=== PATIENT | female | born 1955 | race Asian ===

== ENCOUNTER 2021-10-24 23:49 | Inpatient (IN) | payer MEDICARE, OTHER ==
[~2021-10-24] VITALS: Ht 165.1 cm; Wt 83.6 kg
[2021-10-25] MEDS ORDERED: IV NORMAL SALINE 1000 ML BAG IV ONE
[2021-10-25] MEDS ORDERED: AMLO2.5T4 PO (00:58)
[2021-10-25] MEDS ORDERED: LOSA25TA27 PO (00:58)
[2021-10-25 00:59] LABS: HEMATOCRIT 35.9 % (31.2-41.9); MEAN CORPUSCULAR HEMOGLOBIN 28.9 uug (24.7-32.8); MEAN CORPUSCULAR VOLUME 85.1 fL (75.5-95.3); PLATELET COUNT (AUTO) 224 K/uL (179-408)
--- NOTE | 2021-10-25 01:04 | NUR ---
Patient and her unable to recall all home medication abd dosages at this time.
[2021-10-25 01:17] LABS: ALANINE AMINOTRANSFERASE 33 U/L (14-59); ALKALINE PHOSPHATASE 96 U/L (50-136); ASPARTATE AMINOTRANSFERASE 16 U/L (15-37); BILIRUBIN,DIRECT < 0.1 mg/dL (0.0-0.2); BILIRUBIN,TOTAL 0.3 mg/dL (0.2-1.0); CARBON DIOXIDE 27 mmol/L (21-32); CHLORIDE 105 mmol/L (98-107); GLUCOSE 110 mg/dL (74-106); POTASSIUM 3.3 mmol/L (3.5-5.1); TOTAL PROTEIN, SERUM 7.5 g/dL (6.4-8.2); UREA NITROGEN, BLOOD 17 mg/dL (7-18)
[2021-10-25] MEDS ORDERED: POTASSIUM BICARBONATE/CIT AC 25 MEQ TABLET.EFF PO ONE (01:30)
[2021-10-25] MEDS ORDERED: IV NORMAL SALINE 250 ML IV ONE (01:30)
[2021-10-25] MEDS ORDERED: SWABABLE VALVE TRANSFER SET EA MC ONE (01:30)
[2021-10-25] MEDS ORDERED: IOHEXOL 350 100 ML INFUS..BTL ONE (01:30)
--- NOTE | 2021-10-25 01:34 | NUR ---
Patient out of unit for ct scan via wheelchair
[2021-10-25 01:42] LABS: *BILIRUBIN,URIN NEGATIVE (NEGATIVE); *COLOR,URINE YELLOW (YELLOW); *KETONES,URINE NEGATIVE (NEGATIVE); *UROBILINOGEN,URINE 0.2 E.U./dl (NORMAL); LEUKOCYTE ESTERASE ,URINE TRACE (NEGATIVE); NITRITE, URINE NEGATIVE (NEGATIVE); PH,URINE 6.5 (5.0-8.0); UGLUCOSE NEGATIVE (NEGATIVE)
--- NOTE | 2021-10-25 01:45 | NUR ---
Patient back from ct scan with no distress noted.
[2021-10-25 01:58] LABS: *BLOOD, URINE TRACE (NEGATIVE); *CLARITY,URINE HAZY (CLEAR)
[2021-10-25 01:59] LABS: BACTERIA,URINE MODERATE /HPF (NONE SEEN); SQUAMOUS EPITHELIAL CELL,UR MODERATE /HPF (NONE SEEN)
--- NOTE | 2021-10-25 02:39 | NUR ---
Called PSYCHIATRIC to page Hoda Ortiz NP.
--- NOTE | 2021-10-25 02:47 | NUR ---
Dr. Garcia on panel call with Hoda Ortiz NP.
[2021-10-25] MEDS ORDERED: ENOXAPARIN SODIUM 40 MG/0.4 ML DISP.SYRIN SQ SCH (03:00)
[2021-10-25] MEDS ORDERED: ONDANSETRON 4 MG/2 ML VIAL IV PRN (03:00)
[2021-10-25] MEDS ORDERED: Z GUARD REMEDY PASTE 57 GM TUBE TOP PRN (03:00)
[2021-10-25] MEDS ORDERED: IV NS 1000 ML 1,000 ML IV PRN (03:00)
[2021-10-25] MEDS ORDERED: CEFTRIAXONE 1 G in IV DEXTROSE 5% 50 ML IV SCH (03:00)
[2021-10-25] MEDS ORDERED: ACETAMINOPHEN 325 MG TABLET PO PRN (03:00)
[2021-10-25] MEDS ORDERED: DEXTROSE 50% 50 ML DISP.SYRIN IV PRN (03:00)
[2021-10-25] MEDS ORDERED: MAGNESIUM HYDROXIDE 30 ML LIQUID UDC PO PRN (03:00)
[2021-10-25] MEDS ORDERED: INSULIN REGULAR, HUMAN 300 UNIT/3 ML VIAL SQ PRN (03:00)
[2021-10-25] MEDS ORDERED: POTASSIUM BICARBONATE/CIT AC 25 MEQ TABLET.EFF ONE (03:04)
[2021-10-25] MEDS ORDERED: CEFTRIAXONE /D5W 50ML IVPB **ER PYXIS IV ONE (03:29)
[2021-10-25] MEDS ORDERED: PANTOPRAZOLE SODIUM 40 MG TABLET.DR PO SCH (07:00)
[2021-10-25] MEDS: BLOOD SUGAR DIAGNOSTIC 1 EACH STRIP VI SCH ×2 (07:45→11:48)
[2021-10-25] MEDS ORDERED: PANTOPRAZOLE SODIUM 40 MG TABLET.DR PO ONE (07:47)
[2021-10-25 08:54] LABS: HEMATOCRIT 34.1 % (31.2-41.9); MEAN CORPUSCULAR HEMOGLOBIN 28.9 uug (24.7-32.8); MEAN CORPUSCULAR VOLUME 85.6 fL (75.5-95.3); PLATELET COUNT (AUTO) 202 K/uL (179-408)
[2021-10-25 08:58] LABS: CREATININE 0.8 mg/dL (0.6-1.3); POTASSIUM 3.7 mmol/L (3.5-5.1)
[2021-10-25] MEDS ORDERED: METFORMIN HCL 500 MG TABLET PO SCH (09:00)
[2021-10-25 09:04] LABS: BILIRUBIN,TOTAL 0.2 mg/dL (0.2-1.0); MAGNESIUM 2.4 mg/dL (1.8-2.4); TOTAL PROTEIN, SERUM 7.1 g/dL (6.4-8.2)
[2021-10-25 09:39] LABS: THYROID STIMULATING HORMONE 1.671 mIU/mL (0.358-3.740)
[2021-10-25] MEDS ORDERED: METFORMIN HCL 500 MG TABLET ONE (11:01)
[2021-10-25] MEDS ORDERED: LOSA100T31 PO (14:06)
[2021-10-25] MEDS ORDERED: AMLO10TA59 PO (14:06)
[2021-10-25] MEDS ORDERED: CIPR500T5 PO (14:59)
--- NOTE | 2021-10-25 15:27 | NUR ---
PT WAS EVALUATED BY DR RAJAN AND DR DAIVS. PT WAS D/C'd TO HOME BY DR RAJAN. D/C INSTRUCTIONS GIVEN TO THE PT BY DR RAJAN.
[2021-10-28] MEDS ORDERED: HYDROCODONE/APAP 5-325MG TABLET ONE (20:58)
== END 2021-10-25 15:27 | disposition home or self-care (01) | DRG 690 ==
LOC: ER 23:54 → TRANSITION 10-25 03:32
PROVIDERS: ADMIT Registered Nurse; ATTEND Student in an Organized Health Care Education/Training Program
DX: N39.0 Urinary tract infection, site not specified (principal); E44.1 Mild protein-calorie malnutrition; I95.1 Orthostatic hypotension; E87.6 Hypokalemia; E78.5 Hyperlipidemia, unspecified; I10 Essential (primary) hypertension; R35.0 Frequency of micturition; E03.9 Hypothyroidism, unspecified
CPT/HCPCS: 36415; 70030-TC; 71045; 71275; 83605; 83735; 84100; 84443; 85025; 85730; 86850; 86900; 86901; 87077; 87086; 93005; 93307; A4663; G0378; J0696; J1650; J7030; J7050; J7060; Q9967